=== PATIENT | male | born 1945 | race Caucasian/White ===

== ENCOUNTER → 2017-12-12 | Day surgery (SDC) | payer MEDICARE ==
[~2017-12-12] VITALS: Ht 170.2 cm; Wt 109.0 kg
[~2017-12-12] MED LIST: AMLO10TA2 PO; ASPI-516 CHEW; ATOR40TA16 PO; BENA40TA PO; CEPH-459 PO; CHLORHEXIDINE GLUCONATE 2 % 1 PACK (2 CLOTHS) TOPICAL PRN; CHOL1CAP34 PO; CHOL500022 PO; CLON0.1T PO; DEXAMETHASONE SOD PHOS 4 MG/ML VIAL IV ONE; DO NOT ADM ANY ANTICOAGULANT DRUGS PRN; GLIM4TAB PO; GLYCOPYRROLATE 1 MG/5 ML SYRINGE IV PUSH ONE; LACTATED RINGER'S 1000 ML IV PRN; LATA0.002 EACH EYE; LIDOCAINE HCL 1% PF 5 ML SYRINGE OTHER ONE; METO100T PO; METO50TA PO; METOPROLOL TARTRATE 25 MG TAB PO PRN; NEOSTIGMINE 5 MG/5 ML SYRINGE IV PUSH ONE; NOVONP2 SQ; NOVORP2 SQ; ONDANSETRON HCL 4 MG/2 ML VIAL IV ONE; ONDANSETRON HCL 4 MG/2 ML VIAL IV PUSH PRN; PERC5TAB12 PO; POVIDONE IODINE 5% (ANTISEPSIS KIT) 4 APPLICATIONS EACH NARE PRN; PROPOFOL 200 MG/20 ML AMP IV ONE; ROCURONIUM INJ 50 MG/5 ML SYRINGE IV PUSH ONE; SODIUM CHLORID 0.9% 500 ML IV PRN; ceFAZolin 2 GM PREMIX 50 ML IV SCH; ePHEDrine/NS 25 MG/5 ML SYRINGE IV ONE; oxyCODONE/ACETAMINOPHEN 5 MG/325 MG TAB PO PRN
[2017-12-12 08:06] LABS: AUTOMATED NEUTROPHIL # 4.2 TH/MM3 (1.8-7.7); BASOPHIL # 0.1 TH/MM3 (0-0.2); BASOPHIL % 0.9 % (0.0-2.0); EOSINOPHIL # 0.2 TH/MM3 (0-0.4); EOSINOPHIL % 3.1 % (0.0-4.0); HEMATOCRIT 39.1 % (39.0-51.0); HEMOGLOBIN 13.6 GM/DL (13.0-17.0); LYMPH % 23.3 % (9.0-44.0); LYMPHOCYTE # 1.5 TH/MM3 (1.0-4.8); MEAN CELL VOLUME 83.2 FL (80.0-100.0); MEAN CORPUSCULAR HGB CONC 34.8 % (32.0-36.0); MEAN PLATELET VOLUME 8.8 FL (7.0-11.0); MONOCYTE # 0.6 TH/MM3 (0-0.9); NEUT % 63.7 % (16.0-70.0); PLATELET COUNT 99 TH/MM3 (150-450); RED CELL DISTRIBUTION WIDTH 14.9 % (11.6-17.2); WHITE BLOOD COUNT 6.6 TH/MM3 (4.0-11.0)
--- NOTE | 2017-12-12 11:01 | EKG ---
Date Performed: 12/12/2017 Time Performed: 07:43:47 PTAGE: 72 years EKG: Sinus rhythm NONSPECIFIC T-WAVE ABNORMALITY BORDERLINE ECG Since the prior tracing, there has been no significant change PREVIOUS TRACING : 06/28/2014 12.19 DOCTOR: Aristeo Camargo Interpretating Date/Time 12/12/2017 10:59:22
--- NOTE | 2017-12-12 11:32 | PD.OP ---
Operative Report Date of Surgery: Dec 12, 2017 Preoperative Diagnosis: (1) Bladder mass Postoperative Diagnosis: (1) Bladder mass Procedure: Cystoscopy and transurethral resection of bladder tumor. Anesthesia: General Surgeon: Hira Mendoza It Service Continuity Supervisor(s): None Operation and Findings: Indication for procedures: Case of a pleasant 72-year-old gentleman who was recently discovered to have a small bladder mass originating from the left posterior wall of the bladder on recent ultrasound study. Patient presents today for cystoscopy and possible transurethral resection of this mass. Operative procedures in detail: Patient was brought to the operating room suite and placed supine on the OR table. He was then placed on general anesthesia. He was then repositioned in the dorsolithotomy position and prepped and draped in normal sterile fashion. After an appropriate timeout was undertaken I proceeded with cystoscopic evaluation utilizing the rigid cystoscope with a 20 Romanian sheath and both 30 and 70 lenses. The urethra was patent, without stricture formation. The lateral lobes of the prostate with non-obstructing however there was a moderately enlarged median lobe of the prostate. The patient was noted to have a single frondular bladder mass originating from the upper left posterior wall of the bladder measuring approximately 2 cm in greatest diameter. No other bladder tumors were seen. Both right and left ureteral orifices were in correct anatomic position effluxing clear yellow urine. I then exchanged the cystoscope for the resectoscope with the 24 Romanian Cutting Loop and proceeded with transurethral resection of this bladder mass. Once the mass was resected, I once again exchanged resectoscope for the cystoscope and using flexible biopsy forceps took a biopsy at the tumor base. This was sent off in a separate specimen container. The cystoscope was withdrawn and the resectoscope were utilized and the entire tumor base was fulgurated. The resectoscope was withdrawn and a 16 Romanian 10 cc Foster catheter was placed and connected to gravity drainage. The patient tolerated the procedures without complications and was transferred to the PACU in satisfactory condition. Hira Mendoza MD Dec 12, 2017 11:32
[2017-12-12 14:50] VITALS: BP 146/72; PULSE 74; RESP 20; TEMP 98; O2SAT 95
== END | disposition home or self-care (01) ==
LOC: HSDC 07:18
PROVIDERS: ATTEND Urology
DX: C67.4 Malignant neoplasm of posterior wall of bladder (principal); E11.9 Type 2 diabetes mellitus without complications; N20.0 Calculus of kidney; Z79.4 Long term (current) use of insulin; Z95.1 Presence of aortocoronary bypass graft; Z01.810 Encounter for preprocedural cardiovascular examination; Z01.818 Encounter for other preprocedural examination
CPT/HCPCS: 00912; 52234; 85025; 88305; 88307; 93005; J0690; J1100; J2405; J2710; J3010; J7120